=== PATIENT | female | born 1970 | race Caucasian/White ===

== ENCOUNTER 2022-05-19 06:52 | Day surgery (SDC) | payer OTHER ==
[2022-05-18 12:11] VITALS: BMI 26.6
[2022-05-19 07:27] VITALS: RESP 18; TEMP 98
[2022-05-19] MEDS ORDERED: PROPOFOL 120 ML ONE (07:47)
[2022-05-19] MEDS ORDERED: LIDOCAINE HCL/PF 2% SDV 5ML VIAL ONE (07:47)
[2022-05-19 08:58] VITALS: BP 133/86; PULSE 88
== END 2022-05-19 09:05 | disposition home or self-care (01) ==
LOC: FASU-ENDO 06:52
PROVIDERS: ATTEND Internal Medicine Gastroenterology
PROC: 0DB68ZX Excision of Stomach, Via Natural or Artificial Opening Endoscopic, Diagnostic (ICD-10-PCS; 2022-05-19)
PROC: 0DB98ZX Excision of Duodenum, Via Natural or Artificial Opening Endoscopic, Diagnostic (ICD-10-PCS; principal; 2022-05-19 08:20)
DX: K25.7 Chronic gastric ulcer without hemorrhage or perforation (principal); R10.13 Epigastric pain; K44.9 Diaphragmatic hernia without obstruction or gangrene
CPT/HCPCS: 88305-TC; 88342-TC

== ENCOUNTER 2022-08-05 06:42 | Day surgery (SDC) | payer OTHER ==
[2022-07-29 11:26] VITALS: BMI 36.7
[2022-08-05] MEDS ORDERED: LIDOCAINE HCL/PF 2% SDV 5ML VIAL ONE (07:27)
[2022-08-05] MEDS ORDERED: PROPOFOL 80 ML ONE (07:27)
[2022-08-05 09:02] VITALS: RESP 20; TEMP 98
[2022-08-05 09:56] VITALS: BP 109/67; PULSE 72
== END 2022-08-05 09:17 | disposition home or self-care (01) ==
LOC: FASU-ENDO 06:42
PROVIDERS: ATTEND Internal Medicine Gastroenterology
PROC: 0DJD8ZZ Inspection of Lower Intestinal Tract, Via Natural or Artificial Opening Endoscopic (ICD-10-PCS; principal; 2022-08-05 08:25)
DX: Z12.11 Encounter for screening for malignant neoplasm of colon (principal); Z86.010 Personal history of colon polyps